=== PATIENT | female | born 1970 | race Caucasian/White ===

== ENCOUNTER → 2017-05-14 | Outpatient (CLI) | payer OTHER | LOC: FIMAGING 15:48 | PROVIDERS: ATTEND Obstetrics & Gynecology | DX: Z12.31 Encounter for screening mammogram for malignant neoplasm of breast (principal); Z80.3 Family history of malignant neoplasm of breast | CPT/HCPCS: G0202 ==

== ENCOUNTER → 2017-11-07 | Outpatient (CLI) | payer OTHER ==
[~2017-11-07] MED LIST: IOPAMIDOL (ISOVUE-300) 100 ML BTL ONE
== END ==
LOC: FIMAGING 09:04
PROVIDERS: ATTEND Nurse Practitioner
DX: R10.12 Left upper quadrant pain (principal)
CPT/HCPCS: Q9967

== ENCOUNTER 2018-10-11 19:00 | Emergency (ER) | payer OTHER ==
--- NOTE | 2018-10-11 20:11 | EDPHY ---
H & P Stated Complaint: intermittent "top of the head" PEREZ x 1.5 weeks. worse with movement. Time Seen by Provider: 10/11/18 19:17 HPI/ROS: CHIEF COMPLAINT: Headache HISTORY OF PRESENT ILLNESS: This is a 48-year-old female who presents with intermittent headache for the past 12 days. She does not have a history of frequent headache. This headache began while she was exercising on an elliptical machine. It started after about 10 min of exercise. The headache was not noticeably abrupt in onset and not the worst headache she has ever experienced. She stopped exercising and the headache seemed to improve. However, she has had continued headache on and off for the last 12 days. It seems to be worse when she is at work (she works as a nurse in the hospital). It usually starts in the left frontal region and migrates around her head. A few days ago the headache began on the right. She describes it as a "background " headache, annoying but not painful enough to keep her from being able to work. She has taken an occasional ibuprofen. She has not had confusion, visual changes, persistent neck pain, new numbness, weakness, bowel or bladder changes, difficulty walking, difficulty with speech. She has not had sinus drainage or sinus tenderness. REVIEW OF SYSTEMS: A ten system review of systems was performed and is negative with the exception of the items mentioned in the HPI. Past medical history: 1. Scalp seborrheic dermatitis 2. Cervical and lumbar radiculopathy Past surgical history: 1. C5-6 7 ACDF in 2006 2. 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 She does not use tobacco products. She drinks alcohol socially. She lives with her , who accompanies her tonight. General Appearance: Alert. Vital signs reviewed. Head: Normocephalic atraumatic. Eyes: Pupils equal and round, no conjunctival injection, no discharge. Anicteric. ENT, Mouth: Mucous membranes are moist, no oropharyngeal erythema or edema. Neck: No lymphadenopathy, supple. No meningeal signs. Nontender over the cervical spine in the midline. Respiratory: Lungs are clear to auscultation; no wheezes, rales, or rhonchi. Cardiovascular: Regular rate and rhythm; no murmur, rub, or gallop. Gastrointestinal: Abdomen is soft and nontender, no masses or organomegaly, bowel sounds normal. Skin: Warm and dry, no rashes on exposed skin, normal color. Back: Nontender to palpation over the thoracolumbar spine. Extremities: No lower extremity edema, no calf tenderness or swelling. Neurological: Alert and oriented. Moving all four extremities easily and equally. Cranial nerves II through XII are examined and are intact (visual acuity not tested). Strength is 5 over 5 bilaterally with testing of all major motor groups. Sensation is intact to light touch over all 4 extremities. Deep tendon reflexes are 2+ in the biceps and triceps and 3+ knees bilaterally. Gait is normal. [id number]-[id number] is performed accurately. Psychiatric: Normal affect. - Personal History LMP (Females 10-55): Post Menopausal Current Tetanus Diphtheria and Acellular Pertussis (TDAP): Unsure Tetanus Vaccine Date: 2006 - Medical/Surgical History Hx Asthma: Yes Hx Chronic Respiratory Disease: No Hx Diabetes: No Hx Cardiac Disease: No Hx Renal Disease: No Hx Cirrhosis: No Hx Alcoholism: No Hx HIV/AIDS: No Hx Splenectomy or Spleen Trauma: No Other PMH: GERD/spinal fusions/L5-S1 microdiskectomy 2006 with CSF leak repair/ anterior diskectomies C5-6, C6-7/seborrhagic dermatitis scalp/childhood asthma. - Social History Smoking Status: Former smoker Constitutional: Initial Vital Signs Heart Rate 95 10/11/18 19:25 Respiratory Rate 14 10/11/18 19:25 Blood Pressure 127/80 H 10/11/18 19:25 O2 Sat (%) 99 10/11/18 19:25 O2 Delivery Mode Room Air Allergies/Adverse Reactions: No Allergies [NKDA] Allergy (Verified 10/11/18 19:23) HAYFEVER Allergy (Intermediate, Uncoded 10/11/18 19:23) Other-Enter Comments Home Medications: Medication Instructions Recorded Albuterol Sulfate [Albuterol 2 puffs IH QID #1 mdi 08/28/14 Inhaler Hfa] Dymista Nasal [place] 08/28/14 Proventil Neb 08/28/14 Singulair 08/28/14 Estrogens, Conjugated [PREMARIN] 10/11/18 Progesterone, Micronized 10/11/18 [Progesterone] Medical Decision Making - Diagnostics Imaging Results: Imaging Impressions Head CT 10/11/18 19:50 Impression: 1. Normal brain. 2. Prior cervical fusion surgery with degenerative disk disease directly above the level of the fusion (present on cervical MRI 03/22/2013). Results called to Dr. Edelmira Burgess at 20:17 p.m. General information for patients regarding this examination can be found at [email or web address]. If you have questions or comments about this report, please contact me at (hospital) or [phone] (cell). ED Course/Re-evaluation: Persistent intermittent headache for the past 12 days. We discussed options in the evaluation of this headache. Subarachnoid is a concern in this setting. She understands that CT scan is less effective when looking for subarachnoid hemorrhage as time passes. She would like to proceed with CT scanning. CT scan of the head was performed and the images reviewed by me. I discussed the images with Dr. Domínguez. The study is normal. We discussed lumbar puncture to more definitively rule out subarachnoid hemorrhage. She understands that, given the length of time since this headache began, a CT scan could miss a subarachnoid hemorrhage. She understands that subarachnoid hemorrhages is a potentially life-threatening occurrence. She is able to make her own medical decisions. We discussed the risks and the benefits of lumbar puncture. She chooses to forego lumbar puncture at this visit. We also discussed CT angiogram as a method to look at the blood vessels of the head and neck. It is my recommendation that a lumbar puncture be performed, rather than CT angiogram, as the relevant question is whether or not subarachnoid hemorrhage has occurred. As stated, she does not wish to proceed with lumbar puncture. She understands that she can return at any time, should she change her mind. She has no signs or symptoms of infection such as meningitis. Her neurologic exam is normal. She has not had seizure and I do not suspect malignancy/tumor. I am recommending regular alternating doses of Tylenol and ibuprofen. She has taken very little analgesic medication over the last week and a half. We reviewed the danger signs that should prompt her to be re-evaluated immediately. Differential Diagnosis: Headache including but not limited to subarachnoid hemorrhage, migraine headache , tension headache and infectious causes such as meningitis, pharyngitis and sinusitis. Departure - Departure Disposition: Home, Routine, Self-Care Clinical Impression: Headache Qualifiers: Headache type: unspecified Headache chronicity pattern: episodic headache Intractability: not intractable Qualified Code(s): R51 - Headache Condition: Good Instructions: Acute Headache (ED) Additional Instructions: Adult Pain & Fever Control: We recommend Acetaminophen (Tylenol) and Ibuprofen (Motrin,Advil) for pain and fever control. When fever is high or pain severe, both drugs can be used at the same time, but at different intervals. Please note the time differences. Your dose is: Acetaminophen 650mg every 4 to 6 hours Ibuprofen 400mg every 6 hours with food OR Note: do not take Acetaminophen with Hydrocodone (Vicodin, Lortab) or Oycodone (Percocet). These medications also contain Acetaminophen. No more than 3000mg of Acetaminophen should be taken in 24 hours (for an adult). If you're headache does not improve please follow up with your primary care provider and/or a neurologist. I am referring you to Dr. Schumacher. If you have new or worsening symptoms such as fever, seizure, difficulty thinking, vision changes, new numbness, new weakness--you should be re-evaluated immediately. Referrals: Shell Carbajal MD [Primary Care Provider] - As per Instructions Woody Schumacher DO [Medical Doctor] - As per Instructions
[2018-10-11 21:00] VITALS: BP 113/79
== END 2018-10-11 21:00 | disposition home or self-care (01) ==
LOC: CED 19:00
DX: R51 Headache (principal)
CPT/HCPCS: 70450-PO

== ENCOUNTER → 2018-11-03 | Outpatient (CLI) | payer OTHER ==
[~2018-11-03] MED LIST changes: +GADOBUTROL 10 ML VIAL IVP ONE; -IOPAMIDOL (ISOVUE-300) 100 ML BTL ONE
== END ==
LOC: FIMAGING 15:01
PROVIDERS: ATTEND Psychiatry & Neurology Neurology
DX: G93.9 Disorder of brain, unspecified (principal); M48.02 Spinal stenosis, cervical region
CPT/HCPCS: A9585

== ENCOUNTER 2019-02-19 00:18 | Emergency (ER) | payer OTHER ==
[2019-02-19 00:23] VITALS: BP 119/88
[2019-02-19] MEDS ORDERED: EMTRICITABINE/TENOFOVIR 200MG/300MG TAB PO ONE (00:39)
[2019-02-19] MEDS ORDERED: RALTEGRAVIR 400 MG TAB PO ONE (00:39)
--- NOTE | 2019-02-19 00:43 | EDPHY ---
H & P Stated Complaint: EXPOSURE Time Seen by Provider: 02/19/19 00:39 HPI/ROS: HPI The patient presents with blood borne pathogen exposure. 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 The patient urinated and while she was helping him some of the urine got onto her left hand and she was not wearing a glove. The urine was pinkish in color. This happened about 3 hr ago. She does not have any cuts on her hand or hang nails, however has very dry skin and is concerned that some blood could have entered through some cracks in the skin of her hand. REVIEW OF SYSTEMS 10 systems were reviewed and negative with the exception of the elements mentioned in the history of present illness. PMHx: History of GERD Soc Hx: Works as a nurse. PHYSICAL General Appearance: Alert, no distress Neurological: A&O, moves all extremities Skin: Warm and dry, no rashes Psychiatric: Patient is oriented X 3, there is no agitation Source: Patient Exam Limitations: No limitations - Personal History LMP (Females 10-55): Unknown Current Tetanus Diphtheria and Acellular Pertussis (TDAP): Yes Tetanus Vaccine Date: 2006 - Medical/Surgical History Hx Asthma: Yes Hx Chronic Respiratory Disease: No Hx Diabetes: No Hx Cardiac Disease: No Hx Renal Disease: No Hx Cirrhosis: No Hx Alcoholism: No Hx HIV/AIDS: No Hx Splenectomy or Spleen Trauma: No Other PMH: GERD/spinal fusions/L5-S1 microdiskectomy 2006 with CSF leak repair/ anterior diskectomies C5-6, C6-7/seborrhagic dermatitis scalp/childhood asthma. - Social History Smoking Status: Former smoker Constitutional: Initial Vital Signs Temperature (C) 36.8 C 02/19/19 00:22 Heart Rate 100 02/19/19 00:22 Respiratory Rate 16 02/19/19 00:22 Blood Pressure 119/88 H 02/19/19 00:22 O2 Sat (%) 96 02/19/19 00:22 O2 Delivery Mode Room Air Allergies/Adverse Reactions: No Allergies [NKDA] Allergy (Verified 10/11/18 19:23) Home Medications: Medication Instructions Recorded Albuterol Sulfate [Albuterol 2 puffs IH QID #1 mdi 08/28/14 Inhaler Hfa] Dymista Nasal [place] 08/28/14 Proventil Neb 08/28/14 Singulair 08/28/14 Estrogens, Conjugated [PREMARIN] 10/11/18 Progesterone, Micronized 10/11/18 [Progesterone] Amitriptyline HCl 02/19/19 Emtricitabine/Tenofovir (Tdf) 1 each PO DAILY #28 tablet 02/19/19 [Truvada 200 mg-300 mg Tablet] Raltegravir [Isentress] 400 mg PO BID 28 Days tab 02/19/19 Spironolactone 02/19/19 Medical Decision Making Differential Diagnosis: 48-year-old female presents after blood borne pathogen exposure to patient with known HIV. We have initiated our protocol for blood borne pathogens. Given that she is concerned about breaks in her skin on her hand and the patient had blood in his urine which touched her hand, we will initiate pep therapy which is her preference. She has normal labs and will be discharged from the emergency department with plans to follow up with infectious disease and employee health. - Data Points Laboratory Results: Laboratory Results 02/19/19 00:30 02/19/19 00:30 Medications Given: Discontinued Medications Emtricitabine/Tenofovir (Truvada) 1 tab PO EDNOW ONE Stop: 02/19/19 00:40 Last Admin: 02/19/19 01:10 Dose: 1 tab Raltegravir (Isentress) 400 mg PO EDNOW ONE Stop: 02/19/19 00:40 Last Admin: 02/19/19 01:10 Dose: 400 mg Departure - Departure Disposition: Home, Routine, Self-Care Clinical Impression: Exposure to bloodborne pathogen Condition: Good Instructions: Postexposure Prophylaxis (ED) Additional Instructions: Please follow-up with the [facility] tomorrow. Referrals: Shell Carbajal MD [Primary Care Provider] - As per Instructions [facility] [Provider Group] - As per Instructions Prescriptions: Emtricitabine/Tenofovir (Tdf) [Truvada 200 mg-300 mg Tablet] 1 each PO DAILY # 28 tablet Raltegravir [Isentress] 400 mg PO BID 28 Days tab
[2019-02-19 00:57] LABS: PLATELET COUNT 249 10^3/uL (150-400)
[2019-02-19 01:09] LABS: INR 0.92 (0.83-1.16)
[2019-02-19 02:59] LABS: HEPATITIS B SURFACE ANTIGEN NEGATIVE (NEGATIVE)
[2019-02-19 03:12] LABS: HEPATITIS C ANTIBODY TOTAL NEGATIVE (NEGATIVE); HIV TYPE 1 AND 2 NEGATIVE (NEGATIVE)
== END 2019-02-19 01:30 | disposition home or self-care (01) ==
DX: Z77.21 Contact with and (suspected) exposure to potentially hazardous body fluids (principal); Y93.F9 Activity, other caregiving; Y99.0 Civilian activity done for income or pay
CPT/HCPCS: G0472